=== PATIENT | female | born 1940 | race Caucasian/White ===

== ENCOUNTER 2018-11-30 17:03 | Emergency (ER) | payer MEDICARE, OTHER | END 2018-11-30 17:57 | disposition home or self-care (01) | LOC: BURERS 17:03 | DX: S51.801A Unspecified open wound of right forearm, initial encounter (principal); E11.9 Type 2 diabetes mellitus without complications; E87.1 Hypo-osmolality and hyponatremia; I10 Essential (primary) hypertension; Z86.718 Personal history of other venous thrombosis and embolism; X58.XXXA Exposure to other specified factors, initial encounter | CPT/HCPCS: 99283 ==